=== PATIENT | male | born 1980 ===

== ENCOUNTER 2025-02-24 06:27 | Day surgery (SDC) | payer BC, SELFPAY | END 2025-02-24 13:29 | disposition home or self-care (01) | LOC: GI 06:27 | PROVIDERS: ATTENDING PHYSICIAN Internal Medicine Gastroenterology | DX: K64.9 Unspecified hemorrhoids (principal); Z80.0 Family history of malignant neoplasm of digestive organs | CPT/HCPCS: 45378 ==